=== PATIENT | male | born 1980 | race Caucasian/White ===

== ENCOUNTER 2017-10-20 21:25 | Emergency (ER) | payer OTHER ==
[~2017-10-20] VITALS: Ht 188 cm; Wt 68.0 kg
[~2017-10-20 21:25] MED LIST: CEPHALEXIN 500500 M3 PO; HYDROCODONE-AP1 EAC6 PO; MEDROLDOSEPACK PO; ONDANSETRON HCL4 M2 PO; OSELB75 PO; PEPCID20 MG PO; PREDNISONE 20 M20 MG PO; PRILOSEC 20 MG20 MG PO; PROAIR HFA8.5 GM INH; ZANTAC 150MG T150 MG PO; ZPAK PO
[2017-10-20] MEDS ORDERED: AUGMENTIN 875-1 EACH PO (21:59)
[2017-10-20] MEDS ORDERED: NORCO 5-325 TA1 EAC1 PO (21:59)
[2017-10-20 22:28] VITALS: BP 122/64
== END 2017-10-20 22:29 | disposition home or self-care (01) ==
LOC: M.ERS 21:25
DX: K61.0 Anal abscess (principal); F17.210 Nicotine dependence, cigarettes, uncomplicated